=== PATIENT | male | born 1940 | race Caucasian/White ===

== ENCOUNTER 2018-10-09 17:06 | Emergency (ER) | payer OTHER ==
[2018-10-09] MEDS: morphine 4 MG/ML VIAL IV (17:29)
[2018-10-09] MEDS: SOD CHLORIDE 0.9% 1,000 ML IV ×2 (17:29→19:28)
[2018-10-09] MEDS: ONDANSETRON 4 MG INJ IV ×2 (17:29→19:28)
[2018-10-09 17:33] LABS: ADD MAN DIFF? NO
[2018-10-09 17:39] LABS: BASOPHIL # 0.1 10^3/ul (0.0-0.1); BASOPHILS % 0.4 % (0.0-2.0); EOSINOPHILS # 0.1 10^3/ul (0.0-0.5); EOSINOPHILS % 0.6 % (0.0-7.0); HEMATOCRIT 39.2 % (42.0-52.0); HEMOGLOBIN 13.4 g/dl (14.0-18.0); LYMPHOCYTES # 1.9 10^3/ul (0.8-2.9); LYMPHOCYTES % 16.3 % (15.0-51.0); MEAN CORPUSCULAR HEMOGLOBIN 28.6 pg (29.0-33.0); MEAN CORPUSCULAR HGB CONC 34.2 g/dl (32.0-37.0); MEAN CORPUSCULAR VOLUME 83.8 fl (82.0-101.0); MEAN PLATELET VOLUME 11.1 fl (7.4-10.4); MONOCYTE # 0.4 10^3/ul (0.3-0.9); MONOCYTES % 3.8 % (0.0-11.0); NEUTROPHIL # 9.2 10^3/ul (1.6-7.5); NEUTROPHILS % 78.4 % (39.0-77.0); PLATELET COUNT 331 10^3/UL (140-415); RED BLOOD COUNT 4.68 10^6/ul (4.70-6.10); RED CELL DISTRIBUTION WIDTH 13.4 % (11.5-14.5)
[2018-10-09 17:39] LABS: WHITE BLOOD COUNT 11.7 10^3/ul (4.8-10.8)
[2018-10-09 17:54] LABS: INR 0.95; PROTIME 12.8 Sec (11.9-14.9)
[2018-10-09 17:55] LABS: PARTIAL THROMBOPLASTIN TIME 26.4 Sec (23.0-35.0)
[2018-10-09 17:56] LABS: ALANINE AMINOTRANSFERASE 18 IU/L (13-69); ALBUMIN 4.7 g/dl (3.3-4.9); ALKALINE PHOSPHATASE 144 IU/L (42-121); AMYLASE 57 U/L (11-123); ANION GAP 18 (5-13); ASPARTATE AMINO TRANSFERASE 21 IU/L (15-46); BILIRUBIN,INDIRECT 0.5 mg/dl (0-1.1); BILIRUBIN,TOTAL 0.5 mg/dl (0.2-1.3); BLOOD UREA NITROGEN 15 mg/dl (7-20); CALCIUM 9.4 mg/dl (8.4-10.2); CARBON DIOXIDE 22 mmol/L (21-31); CHLORIDE 101 mmol/L (97-110); CREATININE 0.74 mg/dl (0.61-1.24); GLUCOSE 180 mg/dl (70-220); LIPASE 47 U/L (23-300); POTASSIUM 3.3 mmol/L (3.5-5.1); SODIUM 141 mmol/L (135-144); TOTAL PROTEIN 8.3 g/dl (6.1-8.1)
[2018-10-09 18:08] LABS: TROPONIN-I < 0.012 ng/ml (0.000-0.120)
[2018-10-09] MEDS: SOD CHLORIDE 0.9% 100 ML (18:34)
[2018-10-09] MEDS: IOHEXOL 300MG/ML 150 ML BTL (18:34)
[2018-10-09] MEDS: HYDROmorphONE 1 MG/ML SYG IV (19:28)
[2018-10-09] MEDS: POTASSIUM CHLORIDE (SR) 20 MEQ TAB PO (19:29)
[2018-10-09] MEDS: MAGNESIUM HYDROXIDE 30ML CUP PO (19:34)
[2018-10-09] MEDS: MECLIZINE 12.5 MG TAB PO (20:00)
[2018-10-09] MEDS ORDERED: LORAZEPAM 2 MG INJ (21:06)
[2018-10-09] MEDS: LORAZEPAM 2 MG INJ IV (21:07)
[2018-10-09] MEDS: DIAZEPAM 5 MG TAB PO (21:13)
== END 2018-10-09 22:45 | disposition home or self-care (01) ==
LOC: E/R 17:06
DX: K59.00 Constipation, unspecified (principal); E87.6 Hypokalemia; R42 Dizziness and giddiness; E11.9 Type 2 diabetes mellitus without complications
CPT/HCPCS: 70450; 71045; 74177; 80053; 82150; 83690; 84484; 85025; 85610; 85730; 86850; 86900; 86901; 93005; 96361; 96374; 96375; 96376; 99285-25